=== PATIENT | female | born 1995 | race Caucasian/White ===

== ENCOUNTER 2017-11-02 14:58 | Emergency (ER) | payer OTHER ==
[~2017-11-02] VITALS: Ht 157.5 cm; Wt 44.0 kg
[~2017-11-02 14:58] MED LIST: BENADRYL50 MG PO; CALADRYL CLEAR177 ML TP; URETRON DS1 TAB PO; ZITHROMAX200 MG PO
== END 2017-11-02 17:52 | disposition home or self-care (01) ==
LOC: ER 14:58
DX: N39.0 Urinary tract infection, site not specified (principal); N73.9 Female pelvic inflammatory disease, unspecified

== ENCOUNTER → 2017-11-25 | Emergency (ER) | payer OTHER ==
[~2017-11-25] VITALS: Ht 157.5 cm; Wt 44.0 kg
== END | disposition left against medical advice (07) ==
LOC: ER 05:49
DX: K52.89 Other specified noninfective gastroenteritis and colitis (principal); R10.31 Right lower quadrant pain

== ENCOUNTER 2018-03-24 13:00 | Emergency (ER) | payer OTHER ==
[~2018-03-24] VITALS: Ht 160 cm; Wt 45.4 kg
== END 2018-03-24 22:22 | disposition home or self-care (01) ==
LOC: ER 13:00
DX: K59.09 Other constipation (principal)

== ENCOUNTER 2019-10-29 19:10 | Emergency (ER) | payer OTHER ==
[~2019-10-29] VITALS: Ht 157.5 cm; Wt 45.4 kg
== END 2019-10-30 00:27 | disposition home or self-care (01) ==
LOC: ER 19:10
DX: R51 Headache (principal)

== ENCOUNTER 2024-07-24 19:01 | Emergency (ER) | payer OTHER ==
[~2024-07-24] VITALS: Ht 160 cm; Wt 40.8 kg
[~2024-07-24 19:01] MED LIST changes: +CELEXA20 MG PO; +PEPCID AC20 MG PO; +ZOFRAN8 MG PO
[2024-07-24] MEDS ORDERED: KETOROLAC TROMETHAMINE 30 MG VIAL IM STA (20:54)
== END 2024-07-24 21:03 | disposition home or self-care (01) ==
LOC: ER 19:03
DX: M43.6 Torticollis (principal); Z88.8 Allergy status to other drugs, medicaments and biological substances; M54.30 Sciatica, unspecified side
CPT/HCPCS: 96372; 99282; J1885

== ENCOUNTER 2025-08-03 02:23 | Emergency (ER) | payer OTHER ==
[~2025-08-03] VITALS: Ht 162.6 cm; Wt 42.2 kg
[2025-08-03] MEDS ORDERED: 0.9 % SODIUM CHLORIDE 1,000 ML IV ONE (03:15)
[2025-08-03] MEDS ORDERED: ONDANSETRON HCL 2 MG/ML VIAL IV ONE (03:15)
[2025-08-03] MEDS ORDERED: FAMOtidine 10 MG/ML (4ML VIAL) IV ONE (03:15)
[2025-08-03] MEDS ORDERED: FAMOTIDINE/PF 20 MG/2 ML VIAL ONE ×2 (04:20→09:21)
[2025-08-03] MEDS ORDERED: ONDANSETRON HCL 2 MG/ML VIAL ONE ×2 (04:20→09:21)
[2025-08-03 04:28] LABS: BASO % 0.5 % (0.1-1.2); EOS # 0.10 (0.04-0.54); EOS % 1.7 % (0.7-7.0); LYMPH # 1.38 (1.18-3.74); LYMPH % 22.9 % (19.3-53.1); MEAN PLATELET VOLUME 10.20 fl (9.4-12.4); MONO # 0.51 (0.24-0.82); MONO % 8.5 % (4.7-12.5); NEUT # 4.00 (1.56-6.13); NEUT % 66.2 % (34.0-71.1); RED CELL DISTRIBUTION WIDTH 12.9 % (11.6-14.4)
[2025-08-03 05:22] LABS: ALT/SGPT 18 U/L (12-78); AST/SGOT 17 U/L (15-37); BILIRUBIN TOTAL 0.48 mg/dL (0.3-1.2); BUN CREA RATIO 19 (7.0-25.0); CREATININE SERUM 0.58 mg/dL (0.55-1.02); GFR 122.91; GLOBULINA 2.9 G/DL (2.4-3.5); GLUCOSE FASTING 111 mg/dL (65-100); OSMOLALITY SERUM 287 MOSM/KG (275-295)
[2025-08-03 05:24] LABS: HCG QUANTITATIVE < 1 mUI/mL (1-3)
[2025-08-03 08:15] LABS: COVID-19 AG NEGATIVE (NEGATIVE)
[2025-08-03] MEDS ORDERED: METOCLOPRAMIDE HCL 5 MG/ML VIAL IV ONE (09:15)
[2025-08-03] MEDS ORDERED: ONDANSETRON HCL 2 MG/ML VIAL IV STA (09:15)
[2025-08-03] MEDS ORDERED: FAMOTIDINE/PF 20 MG/2 ML VIAL IV STA (09:15)
[2025-08-03] MEDS ORDERED: METOCLOPRAMIDE HCL 5 MG/ML VIAL ONE (09:21)
== END 2025-08-03 10:56 | disposition home or self-care (01) ==
LOC: ER 02:23
PROVIDERS: General Practice
DX: R11.2 Nausea with vomiting, unspecified (principal); R19.7 Diarrhea, unspecified; R10.31 Right lower quadrant pain; N83.209 Unspecified ovarian cyst, unspecified side; R10.9 Unspecified abdominal pain; Z20.822 Contact with and (suspected) exposure to COVID-19; Z88.1 Allergy status to other antibiotic agents
CPT/HCPCS: 36415; 74177; Q9965